=== PATIENT | male | born 1990 | race Hispanic/Latino ===

== ENCOUNTER 2024-03-14 21:58 | Emergency (ER) | payer OTHER ==
[~2024-03-14] VITALS: Ht 170.2 cm; Wt 93.0 kg
[2024-03-14 22:59] LABS: SARS-CoV-2, RNA, NAAT NEGATIVE SARS CoV-2 (NEGATIVE)
[2024-03-14 23:04] LABS: RAPID GROUP A STREP positive (NEGATIVE)
[2024-03-14] MEDS: APAP/CODEINE 120/12MG 5ML PO STA (23:05)
[2024-03-14 23:08] LABS: INFLUENZA TYPE A Negative For Type A (NEGATIVE); INFLUENZA TYPE B Negative For Type B (NEGATIVE)
[2024-03-14] MEDS: PENICILLIN G BENZATHINE LA 1.2 MILUNITS/2 ML SYG IM ONE (23:44)
[2024-03-15 00:19] VITALS: BP 129/80; PULSE 99; RESP 20; O2SAT 97
== END 2024-03-15 00:20 | disposition home or self-care (01) ==
LOC: EDH 21:58
DX: J02.0 Streptococcal pharyngitis (principal); Z20.822 Contact with and (suspected) exposure to COVID-19; E86.0 Dehydration
CPT/HCPCS: 99283; 87635; 87880; 87804 ×2; 96372; J0561